=== PATIENT | female | born 2000 | race Caucasian/White ===

== ENCOUNTER 2020-03-04 16:28 | Emergency (ER) | payer BC, MEDICAID ==
[~2020-03-04] VITALS: Ht 149.9 cm; Wt 72.7 kg
[2020-03-04 17:23] VITALS: BP 113/71
== END 2020-03-04 17:21 | disposition home or self-care (01) ==
LOC: ER 16:30
DX: M94.0 Chondrocostal junction syndrome [Tietze] (principal); R07.89 Other chest pain
CPT/HCPCS: 93005; 99283